=== PATIENT | male | born 1975 ===

== ENCOUNTER 2018-01-06 15:36 | Emergency (ER) | payer MEDICAID, OTHER ==
[2018-01-06 15:36] VITALS: BMI 26.6
[2018-01-06 15:50] VITALS: BP 118/84; PULSE 81; RESP 18; TEMP 97.9; O2SAT 98
[2018-01-06] MEDS ORDERED: Oxycodone/Acetaminophen 5/325 mg Tab PO STA (15:57)
--- NOTE | 2018-01-06 15:57 | C.PDOC ---
History Of Present Illness 42 year old patient reports that he was at work when he lifted a wooden pallet with metal edges above his head when it slipped and fell onto the back of his head. Reports that he immediately felt dizzy and vomited. Denies LOC. Denies anticoagulant use. Last tetanus 5 years ago. - HPI Time Seen by Provider: 01/06/18 15:51 Chief Complaint (Nursing): Trauma History Per: Patient History/Exam Limitations: no limitations Onset/Duration Of Symptoms: Mins (prior to arrival.) Past Medical History Reviewed: Historical Data, Nursing Documentation, Vital Signs Vital Signs: Last Vital Signs Temp 97.9 F 01/06/18 15:46 Pulse 81 01/06/18 15:46 Resp 18 01/06/18 15:46 BP 118/84 01/06/18 15:46 Pulse Ox 98 01/06/18 15:46 - Medical History PMH: Bipolar Disorder Denies: Diabetes, Hepatitis, HIV, HTN, Seizures, Sexually Transmitted Disease Family History: States: Unknown Family Hx - Social History Hx Alcohol Use: Yes Hx Substance Use: Yes - Immunization History Hx Tetanus Toxoid Vaccination: Yes Hx Influenza Vaccination: No Hx Pneumococcal Vaccination: No Review Of Systems Constitutional: Positive for: Other (pain to the back of the head.) Gastrointestinal: Positive for: Vomiting Neurological: Positive for: Dizziness. Negative for: Other ((-) LOC.) Physical Exam - Physical Exam Appears: Well, Non-toxic Skin: Normal Color, Warm, Dry Head: Normacephalic, Abrasion (posterior scalp.) Eye(s): bilateral: Normal Inspection Neck: Normal ROM, Midline Cervical Tenderness, Supple Chest: Symmetrical, No Deformity Cardiovascular: Rhythm Regular, No Murmur Respiratory: Normal Breath Sounds, No Rales, No Rhonchi, No Wheezing Gastrointestinal/Abdominal: Normal Exam, Soft, No Tenderness Neurological/Psych: Oriented x3, Normal Speech, Normal Motor, Normal Sensation, Normal Reflexes ED Course And Treatment O2 Sat by Pulse Oximetry: 98 (RA) Pulse Ox Interpretation: Normal - CT Scan/US Head CT Other Rad Studies (CT/US): Read By Radiologist CT/US Interpretation: FINDINGS: HEMORRHAGE: No intracranial hemorrhage. BRAIN: No mass effect or edema. No atrophy or chronic microvascular ischemic changes. VENTRICLES: Unremarkable. No hydrocephalus. CALVARIUM: Unremarkable. PARANASAL SINUSES: Unremarkable as visualized. No significant inflammatory changes. MASTOID AIR CELLS: Unremarkable as visualized. No inflammatory changes. OTHER FINDINGS: None. IMPRESSION: No acute intracranial pathology. CT Cervical Spine Other Rad Studies (CT/US): Read By Radiologist CT/US Interpretation: Findings: Straightening of the normal cervical lordosis may be related to muscle spasm or positioning. There is no evidence of acute fracture or subluxation. There is preserved alignment, vertebral body height, intervertebral disc spaces. The prevertebral soft tissues and spinolaminar lines appear intact. The lateral masses are preserved. The dens tip is intact. There is proper alignment of the lateral masses of C1 with the C2 vertebral body. Included portions of the thyroid gland appear unremarkable. Included portions of lung apices appear clear. Impression: Straightening of the normal cervical lordosis may be related to muscle spasm or positioning. No evidence of acute fracture or subluxation. Medical Decision Making Medical Decision Making: Plan: -CT Cervical Spine w/o contrast. CT head w/o contrast. oxycodone Patient refusing pain medication and tetanus UTD 4:53PM Patient well appearing, neurologically intact, and ambulating around the ED without issue. Disposition - Disposition Disposition: HOME/ ROUTINE Disposition Time: 16:52 Condition: GOOD Additional Instructions: Follow-up with PMD within 2 days. Return to ED if condition worsens. Motrin or tylenol for pain Instructions: Head Injury Observation (DC), Head Injury (ED), Closed Head Injury (DC), Concussion in Adults Forms: [facility] (Bahamian), Work Excuse - Clinical Impression Clinical Impression: Head trauma, Concussion with no loss of consciousness - Scribe Statement The provider has reviewed the documentation as recorded by the Scribe (Lisette Matson) Provider Attestation: All medical record entries made by the Scribe were at my direction and personally dictated by me. I have reviewed the chart and agree that the record accurately reflects my personal performance of the history, physical exam, medical decision making, and the department course for this patient. I have also personally directed, reviewed, and agree with the discharge instructions and disposition.
--- NOTE | 2018-01-06 16:35 | CT ---
Date of service: 01/06/2018 PROCEDURE: CT HEAD WITHOUT CONTRAST. HISTORY: head injury COMPARISON: None available. TECHNIQUE: Axial computed tomography images were obtained through the head/brain without intravenous contrast. Radiation dose: Total exam DLP = 1037.97 mGy-cm. This CT exam was performed using one or more of the following dose reduction techniques: Automated exposure control, adjustment of the mA and/or kV according to patient size, and/or use of iterative reconstruction technique. FINDINGS: HEMORRHAGE: No intracranial hemorrhage. BRAIN: No mass effect or edema. No atrophy or chronic microvascular ischemic changes. VENTRICLES: Unremarkable. No hydrocephalus. CALVARIUM: Unremarkable. PARANASAL SINUSES: Unremarkable as visualized. No significant inflammatory changes. MASTOID AIR CELLS: Unremarkable as visualized. No inflammatory changes. OTHER FINDINGS: None. IMPRESSION: No acute intracranial pathology.
--- NOTE | 2018-01-06 16:39 | CT ---
Date of service: 01/06/2018 CT cervical spine without IV contrast Indication: neck pain after trauma Comparison: None available. Technique: Axial computed tomography images were obtained of the cervical spine without the use of intravenous contrast. Coronal and sagittal reformatted images were created and reviewed. This CT exam was performed using 1 or more of the following dose reduction techniques: Automated exposure control, adjustment of the MAA and/or kV according to patient size, and/or use of iterative reconstruction technique. Radiation dose: Total exam DLP = 528.67 mGy-cm. Findings: Straightening of the normal cervical lordosis may be related to muscle spasm or positioning. There is no evidence of acute fracture or subluxation. There is preserved alignment, vertebral body height, intervertebral disc spaces. The prevertebral soft tissues and spinolaminar lines appear intact. The lateral masses are preserved. The dens tip is intact. There is proper alignment of the lateral masses of C1 with the C2 vertebral body. Included portions of the thyroid gland appear unremarkable. Included portions of lung apices appear clear. Impression: Straightening of the normal cervical lordosis may be related to muscle spasm or positioning. No evidence of acute fracture or subluxation.
== END 2018-01-06 17:02 | disposition home or self-care (01) ==
LOC: C.ER 15:36
DX: S09.90XA Unspecified injury of head, initial encounter (principal); W01.0XXA Fall on same level from slipping, tripping and stumbling without subsequent striking against object, initial encounter